=== PATIENT | male | born 1975 | race Two or more races ===

== ENCOUNTER 2019-02-27 02:05 | Emergency (ER) | payer OTHER ==
[~2019-02-27] VITALS: Ht 165.1 cm; Wt 86.2 kg
[2019-02-27] MEDS ORDERED: LIDOCAINE 1% HCL (LOCAL ANESTH.) INJ 20ML MDV IJ ONE (04:45)
[2019-02-27] MEDS ORDERED: IBUPROFEN 800 MG TAB PO ONE (04:45)
[2019-02-27] MEDS ORDERED: ACETAMINOPHEN 500 MG TAB PO ONE (04:45)
[2019-02-27] MEDS ORDERED: TETANUS-DIPTH-ACEL PERTUSSIS 0.5ML SYRG IM ONE (04:45)
[2019-02-27 06:39] VITALS: BP 121/80
== END 2019-02-27 06:43 | disposition home or self-care (01) ==
LOC: EEVIPCON 02:09 → ER 02:09
DX: S61.512A Laceration without foreign body of left wrist, initial encounter (principal); S63.91XA Sprain of unspecified part of right wrist and hand, initial encounter; Z88.0 Allergy status to penicillin; W26.8XXA Contact with other sharp object(s), not elsewhere classified, initial encounter; Y93.89 Activity, other specified; Y99.8 Other external cause status; Y92.89 Other specified places as the place of occurrence of the external cause
CPT/HCPCS: 12002; 73110; 73130; 90471; 90715